=== PATIENT | male | born 1995 ===

== ENCOUNTER → 2017-07-20 | Outpatient (CLI) | payer OTHER ==
[~2017-07-20] VITALS: Ht 170.2 cm; Wt 105.1 kg
[2017-07-20 15:12] VITALS: BP 123/80; PULSE 91; Ht 170.2 cm; Wt 105.1 kg
== END | disposition home or self-care (01) ==
LOC: C.NEUR 14:55
PROVIDERS: ATTEND Physician Assistant
DX: G47.30 Sleep apnea, unspecified (principal); R63.8 Other symptoms and signs concerning food and fluid intake